=== PATIENT | male | born 1940 | race Caucasian/White ===

== ENCOUNTER 2017-05-08 06:52 | Day surgery (SDC) | payer MEDICARE, BC ==
[~2017-05-08 06:52] MED LIST: Buffered Lidocaine 0.9% SYRIN* 5 ML/SYR SYRINGE INTRADERM ONE
[2017-05-08] MEDS ORDERED: ceFAZolin 2 GM in 100 MLS NS (*) BAG IVPB ONE (07:01)
[2017-05-08] MEDS ORDERED: Buffered Lidocaine 0.9% SYRIN* 5 ML/SYR SYRINGE ONE (07:01)
[2017-05-08] MEDS ORDERED: Lidocaine 1% MPF wEPI 200,000* 30 ML SDV ONE (07:08)
[2017-05-08] MEDS ORDERED: Midazolam* 1 MG/ML 2 ML VIAL (2 MG) ONE ×2 (07:44→08:46)
[2017-05-08] MEDS ORDERED: fentaNYL* 50 MCG/ML 2 ML VIAL (100 MCG VIAL) ONE (07:44)
[2017-05-08] MEDS ORDERED: Naloxone* 0.4 MG/ML 1 ML VIAL IV PRN (08:11)
[2017-05-08 09:38] VITALS: BP 119/61
== END 2017-05-08 09:48 | disposition home or self-care (01) ==
LOC: OR 06:52
PROVIDERS: ATTEND Plastic Surgery
DX: C44.319 Basal cell carcinoma of skin of other parts of face (principal); Z85.828 Personal history of other malignant neoplasm of skin; Z85.46 Personal history of malignant neoplasm of prostate
CPT/HCPCS: 88305; 88331; 88332; J2001; J2250; J3010